=== PATIENT | male | born 1975 | race Caucasian/White ===

== ENCOUNTER 2021-12-02 20:15 | Emergency (ER) | payer BC ==
[~2021-12-02] VITALS: Ht 175.3 cm; Wt 90.0 kg
[~2021-12-02 20:15] MED LIST: CARAFATE PO; CYCLOBENZAPRINE10 MG PO; ESCITALOPRAM OX10 MG PO; METRONIDAZOL500 MG PO; NORCO1 TA1 PO; PROTONIX40 M2 PO
[2021-12-02 21:06] LABS: HEMATOCRIT 44.5 % (39.0-50.0); HEMOGLOBIN 15.8 g/dl (14.0-18.0); IMMATURE GRANULOCYTES 0.3 % (0.0-5.0); MEAN CELL VOLUME 89.5 fL CALC (80.0-100.0); MEAN CORPUSCULAR HGB 31.8 pG CALC (26.0-32.0); MEAN CORPUSCULAR HGB CONC 35.5 g/dL CAL (32.0-36.0); NEUT# 7.53 thou/uL (1.82-7.42); RED BLOOD COUNT 4.97 mill/uL (4.70-6.10); RED CELL DISTRI WIDTH 12.1 % (11.5-15.5)
[2021-12-02] MEDS ORDERED: ESCITALOPRAM OX10 MG PO (21:07)
[2021-12-02] MEDS ORDERED: CYCLOBENZAPRINE10 MG PO (21:08)
[2021-12-02] MEDS ORDERED: MELOXICAM7.5 MG PO (21:08)
[2021-12-02 21:16] LABS: ALBUMIN 4.9 g/dL (3.2-5.0); ALKALINE PHOSPHATASE 94 u/l (38-126); AMYLASE 112 u/l (30-110); ANION GAP 15 (6-22 (CALC)); BILIRUBIN, TOTAL 0.8 mg/dL (0.0-1.4); BUN 16 mg/dL (9-20); BUN/CREATININE RATIO 15 (12-20 (CALC)); CARBON DIOXIDE 17 mmol/l (22-30); CHLORIDE 106 mmol/l (95-108); GFR FOR AFR.AMER. > 60 ML/MIN (>=60 (CALC)); GFR OTHER RACES > 60 ML/MIN (>=60 (CALC)); LIPASE 275 u/l (23-300); POTASSIUM 3.8 mmol/l (3.5-5.1); SGOT/AST 35 u/l (17-59); SODIUM 134 mmol/l (137-146); TOTAL PROTEIN 8.2 g/dL (6.3-8.2)
[2021-12-02 21:28] LABS: MYOGLOBIN 35 ng/mL (0 - 121)
[2021-12-02] MEDS ORDERED: TAM75CAP PO (22:07)
[2021-12-02] MEDS ORDERED: NAPROXEN500 MG PO (22:07)
[2021-12-02] MEDS ORDERED: ONDANSETRON4 MG PO (22:07)
[2021-12-02 22:11] LABS: URINE BLOOD DIPSTICK TRACE-INTACT (NEGATIVE); URINE COLOR YELLOW; URINE GLUCOSE - DIPSTICK NEGATIVE (NEGATIVE); URINE KETONE 15 mg/dL (NEGATIVE); URINE LEUK ESTERASE NEGATIVE (NEGATIVE); URINE PH 8.5 (4.5-8.0); URINE PROTEIN - DIPSTICK 30 mg/dL (NEG-TRACE)
[2021-12-02 22:16] LABS: URINE BILIRUBIN - DIPSTICK SMALL (NEGATIVE); URINE NITRITE - DIPSTICK NEGATIVE (Negative)
[2021-12-02 22:18] LABS: URINE RBC 0-2 RBC/hpf (0-5); URINE WBC 0-2 WBC/hpf (0-5)
[2021-12-02 22:35] VITALS: BP 128/86
[2021-12-03 20:25] VITALS: BP 128/86
== END 2021-12-02 23:00 | disposition home or self-care (01) | DRG 195 ==
LOC: ED 20:15
PROVIDERS: Emergency Medicine
DX: J10.1 Influenza due to other identified influenza virus with other respiratory manifestations (principal)

== ENCOUNTER 2022-09-15 06:55 | Emergency (ER) | payer BC ==
[~2022-09-15] VITALS: Ht 175.3 cm; Wt 91.0 kg
[~2022-09-15 06:55] MED LIST changes: +MELOXICAM7.5 MG PO; +NAPROXEN500 MG PO; +ONDANSETRON4 MG PO; +TAM75CAP PO
[2022-09-15 12:04] VITALS: BP 138/104
== END 2022-09-15 12:17 | disposition home or self-care (01) | DRG 185 ==
LOC: ED 06:55
DX: S22.41XA Multiple fractures of ribs, right side, initial encounter for closed fracture (principal); Y35.93XA Legal intervention, means unspecified, suspect injured, initial encounter